=== PATIENT | female | born 1945 | race Caucasian/White ===

== ENCOUNTER 2018-06-14 20:13 | Emergency (ER) | payer OTHER ==
[2018-06-14] MEDS: HYDROCODONE/APAP (10/325) TAB PO (21:48)
[2018-06-14] MEDS: ONDANSETRON (ODT) 4 MG TAB ODT (23:39)
== END 2018-06-15 00:19 | disposition home or self-care (01) ==
LOC: E/R 06-15 00:19
DX: S52.572A Other intraarticular fracture of lower end of left radius, initial encounter for closed fracture (principal); I10 Essential (primary) hypertension; W18.39XA Other fall on same level, initial encounter; Y92.9 Unspecified place or not applicable
CPT/HCPCS: 29125; 73110-LT; 99283-25